=== PATIENT | female | born 1965 | race Caucasian/White ===

== ENCOUNTER → 2025-05-23 07:46 | Outpatient (REF) | payer BC, SELFPAY | LOC: RAD 07:46 | PROVIDERS: ATTENDING PHYSICIAN Family Medicine; OTHER PHYSICIAN Specialist | DX: M25.552 Pain in left hip (principal) | CPT/HCPCS: 73522 ==

== ENCOUNTER → 2025-06-04 10:36 | Outpatient (REF) | payer BC, SELFPAY ==
[2025-06-04 11:27] LABS: Hematocrit 41.6 % (37.0-47.0); Hemoglobin 13.9 g/dL (12.0-16.0); Mean Corp Hgb Conc. 33.4 g/dL (33.0-37.0); Mean Corpuscular Volume 93.5 fL (81.0-99.0); Nucleated Red Blood Cells % 0 %; Platelet Count 307 10^3/uL (130-400); Red Cell Dist. Width 12.6 % (11.5-14.5)
[2025-06-04 11:50] LABS: Blood Urea Nitrogen 13 mg/dl (7-17); Calcium 10.7 mg/dl (8.4-10.2); Carbon Dioxide 29 mmol/L (22-30); Chloride 101 mmol/L (98-107); Glucose 91 mg/dl (70-99); Potassium 4.8 mmol/L (3.5-5.1); Sodium 136 mmol/L (135-145); eGFR > 60.00
== END ==
LOC: RCS 10:36
PROVIDERS: ATTENDING PHYSICIAN Specialist; FAMILY PHYSICIAN Family Medicine
DX: Z01.818 Encounter for other preprocedural examination (principal)
CPT/HCPCS: 36415; 80048; 85025; 93005